=== PATIENT | male | born 1955 | race Two or more races ===

== ENCOUNTER → 2023-07-08 | Outpatient (CLI) | payer OTHER | LOC: M SOG 07:52 | PROVIDERS: ATTEND Physician Assistant | DX: M54.50 Low back pain, unspecified (principal) ==

== ENCOUNTER → 2023-10-17 | Outpatient (CLI) | payer OTHER, MEDICARE, BC | LOC: M RAD 06:36 | PROVIDERS: ATTEND Physician Assistant | DX: M54.40 Lumbago with sciatica, unspecified side (principal); M43.16 Spondylolisthesis, lumbar region; M51.26 Other intervertebral disc displacement, lumbar region; M99.63 Osseous and subluxation stenosis of intervertebral foramina of lumbar region ==

== ENCOUNTER → 2024-02-02 | Outpatient (CLI) | payer BC, MEDICARE, OTHER | LOC: M SOG 07:55 | PROVIDERS: ATTEND Orthopaedic Surgery | DX: M43.17 Spondylolisthesis, lumbosacral region (principal) ==